=== PATIENT | female | born 1970 | race African-American/Black ===

== ENCOUNTER 2017-08-21 20:17 | Emergency (ER) | payer OTHER ==
[~2017-08-21] VITALS: Ht 180.3 cm; Wt 126.1 kg
--- NOTE | ~2017-08-21 | EKG ---
[place] [address] [facility] [place] [address] ELECTROCARDIOGRAM REPORT Name: MACHO SHAY Room #: [facility] Soraida#: [id number] Admission: 08/21/17 Attend Phys: Discharge: 08/21/17 Date of : 72 Report #: [id number] THIS REPORT FOR: //name// ED Test Date: 2017-08-21 Test Time: 20:50:44 Pat Name: MACHO SHAY Department: Room: Gender: F Lock Plater: GARIMA : 1970 Requested By: Simon Ha Order Number: [id number] MD: Jude Mcgraw Measurements Intervals [place] Rate: 69 P: 44 WI: 218 QRS: -24 QRSD: 98 T: 1 QT: 379 QTc: 406 Interpretive Statements Sinus rhythm Prolonged [place] interval Abnormal R-wave progression, late transition No previous ECG available for comparison Electronically Signed On 08-22-2017 7:53:51 CDT by Jude Mcgraw [email or web address] <ELECTRONICALLY SIGNED> By: Jude Mcgraw MD, [facility] 08/22/17 [id number] Jude Mcgraw MD, FACC /EPI
[2017-08-21 21:01] LABS: URINE BILIRUBIN NEGATIVE (Negative); URINE BLOOD 3+ (Negative); URINE CLARITY CLEAR; URINE COLOR YELLOW; URINE GLUCOSE-RANDOM* NEGATIVE (Negative); URINE KETONES NEGATIVE (Negative); URINE LEUKOCYTES-REFLEX NEGATIVE (Negative); URINE NITRITE-REFLEX NEGATIVE (Negative); URINE PROTEIN (DIPSTICK) TRACE (Negative); URINE UROBILINOGEN 0.2 E.U./dl (0.2-1.0)
[2017-08-21 21:01] LABS: BASOPHILS 1.5 % (0.0-2.0); EOSINOPHILS 3.3 % (0.0-3.0); HEMATOCRIT 39.8 % (37.0-47.0); HEMOGLOBIN 13.2 gm/dL (12.0-15.0); LYMPHOCYTES 39.7 % (24.0-44.0); MCH 27.3 pg (26.0-34.0); MCHC 33.1 g/dL (28.0-37.0); MCV 82.6 fL (80.0-100.0); MONOCYTES 6.6 % (1.0-8.0); PLATELET COUNT 242 thou/uL (150-400); POLYS 48.9 % (36.0-66.0); RBC 4.83 mil/uL (4.20-5.00); WBC 6.1 thou/uL (4.0-11.0)
[2017-08-21 21:09] LABS: ANION GAP 7 mmol/L (7-16); BUN 14 mg/dL (7-18); CALCIUM 9.2 mg/dL (8.5-10.1); CHLORIDE 103 mmol/L (98-107); CO2 27 mmol/L (21-32); CREATININE 0.9 mg/dL (0.6-1.0); GLUCOSE 103 mg/dL (74-106); POTASSIUM 3.3 mmol/L (3.5-5.1); SODIUM 137 mmol/L (136-145)
[2017-08-21 21:10] LABS: CASTS None Seen /LPF (None Seen); CRYSTALS None Seen /LPF (None Seen); SQUAMOUS 0-3 Few /LPF (0-3); URINE RBC >20 Many /HPF (0-2)
[2017-08-21 21:11] LABS: BACTERIA-REFLEX 1-9 Few /HPF (None Seen); URINE WBC-REFLEX None Seen /HPF (0-5)
[2017-08-21 21:17] LABS: ALBUMIN 3.8 g/dL (3.4-5.0); LIPASE 120 U/L (73-393); SGOT 25 U/L (15-37); SGPT 22 U/L (30-65); TOTAL BILIRUBIN 0.4 mg/dL (<0.1-1.0); TOTAL PROTEIN 9.4 g/dL (6.4-8.2); TROPONIN-I < 0.04 ng/mL (<0.06)
[2017-08-21] MEDS ORDERED: NORVASC5 MG PO (21:34)
[2017-08-21] MEDS ORDERED: TRAMADOL 50 MG50 MG PO (22:43)
[2017-08-21] MEDS ORDERED: PEPCID20 MG PO (22:43)
[2017-08-21] MEDS ORDERED: ZOFRAN ODT8 MG PO (22:43)
[2017-08-21 23:31] VITALS: BP 129/79
== END 2017-08-21 23:34 | disposition home or self-care (01) ==
LOC: ER 20:17
PROVIDERS: Emergency Medicine
DX: R10.9 Unspecified abdominal pain (principal); R11.2 Nausea with vomiting, unspecified

== ENCOUNTER → 2018-01-22 | Outpatient (CLI) | payer OTHER ==
[~2018-01-22] MED LIST: MOBIC7.5 MG PO; MUCINEX1200 MG PO; NORVASC5 MG PO; PEPCID20 MG PO; TESSALON PERLE100 MG PO; TRAMADOL 50 MG50 MG PO; ZOFRAN ODT8 MG PO
== END ==
LOC: ULTRA 09:41
DX: N28.1 Cyst of kidney, acquired (principal); R82.90 Unspecified abnormal findings in urine

== ENCOUNTER 2018-10-02 19:21 | Emergency (ER) | payer OTHER ==
[~2018-10-02] VITALS: Ht 180.3 cm; Wt 130.2 kg
[2018-10-02] MEDS ORDERED: DIOVAN320 MG PO (20:40)
[2018-10-02] MEDS ORDERED: TESSALON PERLE100 MG PO (20:58)
[2018-10-02] MEDS ORDERED: PREDNISONE 20 M20 MG PO (21:01)
[2018-10-02 21:31] VITALS: BP 148/81
== END 2018-10-02 21:31 | disposition home or self-care (01) ==
LOC: ER 19:21
DX: J06.9 Acute upper respiratory infection, unspecified (principal); I10 Essential (primary) hypertension; Z98.890 Other specified postprocedural states